=== PATIENT | male | born 1975 | race Caucasian/White ===

== ENCOUNTER 2019-02-17 16:00 | Outpatient (CLI) | payer BC | END 2019-02-17 16:01 | disposition home or self-care (01) | LOC: SLEEPLAB 16:00 | PROVIDERS: ATTEND Family Medicine | DX: G47.33 Obstructive sleep apnea (adult) (pediatric) (principal); R53.83 Other fatigue; K21.9 Gastro-esophageal reflux disease without esophagitis; R06.83 Snoring; G47.31 Primary central sleep apnea | CPT/HCPCS: 95806 ==

== ENCOUNTER 2019-03-30 19:30 | Outpatient (CLI) | payer BC | END 2019-03-30 19:31 | disposition home or self-care (01) | LOC: SLEEPLAB 19:30 | PROVIDERS: ATTEND Family Medicine | DX: G47.33 Obstructive sleep apnea (adult) (pediatric) (principal); R53.83 Other fatigue; K21.9 Gastro-esophageal reflux disease without esophagitis; E66.9 Obesity, unspecified; G47.61 Periodic limb movement disorder; R06.83 Snoring | CPT/HCPCS: 95811 ==

== ENCOUNTER 2019-04-07 10:35 | Outpatient (CLI) | payer BC ==
--- NOTE | 2019-04-07 11:43 | MRI ---
Cervical spine MRI without contrast: 04/07/2019 COMPARISON: None HISTORY: Left shoulder pain, arm pain, injury TECHNIQUE: Multiplanar multisequence MR imaging of the cervical spine is provided without contrast FINDINGS: Questionable subtle increased STIR signal is seen in the region of the interspinous ligamen t at the C4-5, C5-6, and C6-7 levels which could signify a mild degree of ligamentous injury in the proper clinical setting. The adjacent paraspinal musculature demonstrates normal signal intensity. The craniocervical junction and atlantoaxial interspace demonstrate no acute findings. Cervicothoraci c junction appears normal as well. There is no focal area of abnormal signal intensity within the cervical cord. C2-3: No central canal or neural foraminal stenosis C3-4: No significant central canal or neural foraminal stenosis. Mild left-sided facet hypertrophy. C4-5: No significant central canal or neural foraminal stenosis. C5-6: No significant central canal or neural foraminal stenosis C6-7: No significant central canal or neural foraminal stenosis C7-T1: No significant central canal or neural foraminal stenosis. There is no focal area of abnormal signal intensity identified within the cervical cord. IMPRESSION: Questionable mild increased STIR signal within the interspinous ligaments as detailed abo ve. The study appears grossly unremarkable otherwise.
== END 2019-04-07 10:36 | disposition home or self-care (01) ==
LOC: TBSIIMAG 10:35
PROVIDERS: ATTEND Pediatrics Sports Medicine
DX: M54.2 Cervicalgia (principal); R29.898 Other symptoms and signs involving the musculoskeletal system
CPT/HCPCS: 72141

== ENCOUNTER 2019-05-12 13:40 | Outpatient (CLI) | payer BC ==
--- NOTE | 2019-05-12 17:52 | MRI ---
MRI LEFT UPPER EXTREMITY WITHOUT IV CONTRAST: INDICATIONS: Pain within the sternoclavicular region. TECHNIQUE: Multiplanar, multisequence MR images were obtained of the left clavicle and sternoclavicular joint. The post contrast series could not be performed due to the patient experiencing claustrophobia and te rminating exam. Motion artifact limits image detail on the examination. FINDINGS: The visualized coracoclavicular ligaments are within normal limits. The AC joint is normal appearing . The bone marrow signal intensity of the left clavicle appears within normal limits. The left ster noclavicular joint demonstrates no definite effusion or abnormal signal. No lymphadenopathy is gross ly evident. The visualized aspects of the left brachial plexus appears within normal limits. IMPRESSION: 1. No definite signal abnormality grossly evident involving the sternoclavicular joint to explain th e patient's pain within this location. The sternoclavicular joint appears symmetric to the contralat eral right sternoclavicular joint, without evidence of subluxation, abnormal joint effusion, or signa l abnormality. 2. Some limitation of exam, as above. POS: CET
== END 2019-05-12 13:41 | disposition home or self-care (01) ==
LOC: SCSMRI 13:40
PROVIDERS: ATTEND Orthopaedic Surgery
DX: M25.512 Pain in left shoulder (principal)

== ENCOUNTER 2020-06-29 08:47 | Outpatient (CLI) | payer BC, OTHER ==
[2020-06-29 18:11] LABS: SARS-CoV-2 MS2 Positive; SARS-CoV-2 N Gene Negative; SARS-CoV-2 S Gene Negative; SARS-CoV-2 by NAA Not Detected (NotDetected); SARS-CoV-2 orf1ab Negative
== END 2020-06-29 08:48 | disposition home or self-care (01) ==
LOC: LABSCS 08:47
PROVIDERS: ATTEND Family Medicine
DX: M54.12 Radiculopathy, cervical region (principal); Z20.828 Contact with and (suspected) exposure to other viral communicable diseases
CPT/HCPCS: 87635; U0003

== ENCOUNTER 2020-07-02 09:57 | Day surgery (SDC) | payer BC ==
[2020-07-01 09:27] VITALS: BMI 28.6
[2020-07-02] MEDS ORDERED: Fentanyl 100 MCG/2 ML VIAL ONE (12:05)
[2020-07-02] MEDS ORDERED: Midazolam HCl 2 mg/2 ml Vial ONE (12:05)
--- NOTE | 2020-07-02 13:23 | MRI ---
MRI Cervical spine without contrast: HISTORY: Cervical radiculitis. Patient complains of neck and left-sided pain as well as weakness. COMPARISON: 04/07/2019 FINDINGS: The craniocervical junction is unremarkable. No significant cord signal abnormality. Paravertebral soft tissues have a normal appearance and normal signal intensity. Previously noted mild increased signal intensity within the interspinous ligaments at C4-C5, C5-6 and C6-7 levels is not appreciated on today's exam. C1-2:No significant stenosis. C2-3: There is no disc bulge or disc herniation. The central spinal canal and neural foramina are pat ent. C3-4: There is no disc bulge or disc herniation. The central spinal canal and neural foramina are pat ent. C4-5: There is no disc bulge or disc herniation. The central spinal canal and neural foramina are pat ent. C5-6: There is no disc bulge or disc herniation. The central spinal canal and neural foramina are pat ent. C6-7: There is no disc bulge disc herniation. The central spinal canal and neural foramina are patent . C7-T1: There is no disc bulge or disc herniation. The central spinal canal and neural foramina are pa tent. IMPRESSION: 1. Questionable increased STIR signal intensity within the interspinous limits on prior study is not appreciated on today's exam. 2. No intradural or extradural defect is identified, and the central spinal canal and neural foramina are patent at all levels of the cervical spine.
== END 2020-07-02 13:15 | disposition home or self-care (01) ==
LOC: SDC/OP 09:57
PROVIDERS: ATTEND Family Medicine
DX: M54.12 Radiculopathy, cervical region (principal); E78.5 Hyperlipidemia, unspecified; J30.2 Other seasonal allergic rhinitis; Z79.899 Other long term (current) drug therapy
CPT/HCPCS: 72141; J2250; J3010